=== PATIENT | female | born 1970 | race Caucasian/White ===

== ENCOUNTER 2019-07-11 02:00 | Observation (INO) | payer OTHER, SELFPAY ==
[2019-07-11] VITALS (16 sets, daily range): BP systolic 104–120; BP diastolic 45–72; PULSE 61–79; RESP 14–19; TEMP 36.7–37.4; O2SAT 99–100; BMI 21.7
--- NOTE | ~2019-07-11 | US_ITS ---
EXAMINATION: US pelvic complete w TV EXAM DATE: 07/11/2019 11:32 INDICATION: Amenorrhea/menorrhagia. TECHNIQUE: Pelvic transabdominal and transvaginal sonogram was performed. There are multiple graysca le and Doppler images available for interpretation. There is no prior study for comparison. FINDINGS: Uterus measures 6.7 x 6.1 x 6.2 cm, with heterogeneous region centrally located, partially surrounded by the endometrium, appearance most consistent with a pedunculated submucosal fibroid, me asuring 3.5 x 4.5 x 3.5 cm. There are echogenic foci, and regions causing shadowing within this mass, probably calcifications. This region, the endometrial stripe is 11 mm in thickness. There is no donato e pelvic fluid. Right adnexa: The ovary measures 3.5 x 2.0 x 2.8 cm, with a 1.8 cm complex cystic lesion likely hemor rhagic cyst.. Ovarian vascular flow confirmed. Left adnexa: The ovary measures 3.4 x 1.9 x 1.8 cm and is morphologically normal. Ovarian vascular fl ow confirmed. IMPRESSION: 1. Focal round heterogeneous centrally located mass appearance most consistent with pedunculated subm ucosal fibroid. Can't totally exclude endometrial cancer. 2. Small right ovarian lesion likely hemorrhagic cyst. Reviewed, dictated and finalized at location B. IMPRESSION: 1. Focal round heterogeneous centrally located mass appearance most consistent with pedunculated submucosal fibroid. Can't totally exclude endometrial cancer. 2. Small right ovarian lesion likely hemorrhagic cyst.
--- NOTE | 2019-07-11 02:20 | ED.RECABL ---
HPI - Recheck/Abnormal Lab/Rx General Chief Complaint: Recheck/Abnormal Lab/Rx Stated Complaint: LOW HEMOGLOBIN Time Seen by Provider: 07/11/19 02:18 Source: patient and RN notes reviewed Mode of arrival: ambulatory Limitations: no limitations History of Present Illness HPI narrative: Pt is a 48 y/o female who presents to the ED with c/o anemia. She notes that she has had abnormally heavy periods over the past 4 years, stating that she passes a lot of large clots. Pt notes that she has recently developed fatigue, lightheadedness, and dyspnea on exertion. Pt states that she had routine blood work drawn yesterday morning, and notes that she was called early this morning and advised her hemoglobin was 4.4. She denies any melena, hematochezia, or other symptoms. MD complaint: abnormal lab Initial visit (ago): day(s) (1) Initial visit for: other (routine blood work) Returns today for: called because of abnormal lab/test Description of abnormal result: Hemoglobin of 4.4. Associated symptoms: other (lightheadedness; fatigue; dyspnea on exertion; heavy periods) Related Data Home Medications Medication Instructions Recorded Confirmed No Home Medications 07/09/19 07/09/19 Allergies Allergy/AdvReac Type Severity Reaction Status Date / Time morphine Allergy Unknown Gastrointestinal Verified 07/11/19 02:27 Upset Review of Systems Review of Systems: All systems reviewed & are unremarkable except as noted in HPI and below Constitutional: Constitutional: Reports fatigue Respiratory: Respiratory: Reports dyspnea on exertion Gastrointestinal: Gastrointestinal: Denies melena and Denies hematochezia Genitourinary: Genitourinary: Reports abnormal menses (heavy periods) Neurologic: Reports other (lightheadedness) PMFSH Past Medical History Medical History Pneumothorax traumatic Surgical History Surgical History No significant past surgical history Social History Social History Smoking status: Never smoker Alcohol intake: current Gender identity (if verbalized by the patient): Female Exam Narrative: Exam Narrative: GENERAL: Well-appearing, well-nourished, and in no acute distress. HEAD: Normocephalic, atraumatic. EYES: PERRL and EOMI. Pale conjunctiva. ENT: Mucous membranes moist. CHEST: Clear to auscultation. No respiratory distress. HEART: Regular rate and rhythm. No murmur heard. Normal peripheral pulses. ABDOMEN: Soft, nontender, nondistended, guaiac negative stool. EXTREMITIES: Normal range of motion. No edema. NEURO: Alert and oriented x3. PSYCH: Normal mood and affect. Course Course Emergency Course: Accepted by hospitalist service for admission. 2 units ordered for transfusion. Will add on pelvic ultrasound given patient's history of menorrhagia. Vital Signs Vital signs: Vital Signs Temperature 98.3 F 07/11/19 02:01 Pulse Rate 78 07/11/19 02:01 Respiratory Rate 16 07/11/19 02:01 Blood Pressure 118/45 L 07/11/19 02:01 Pulse Oximetry 100 07/11/19 02:01 Temperature 99.3 F 07/11/19 04:41 Pulse Rate 66 07/11/19 04:41 Respiratory Rate 17 07/11/19 04:41 Blood Pressure 107/69 07/11/19 04:41 Pulse Oximetry 100 07/11/19 04:41 MDM - Recheck/Abnormal Lab/Rx Lab Data Result diagrams: 07/11/19 02:35 07/11/19 02:35 Labs: Lab Results 07/11/19 07/11/19 07/11/19 Range/Units 02:35 02:35 02:35 WBC 6.1 (4.5-10.0) K/mm3 RBC 3.46 L (4.2-5.4) M/mm3 Hgb 5.0 L* (12.0-15.0) g/dL Hct 21.2 L (37.0-47.0) % MCV 61.3 L (80-100) fl MCH 14.5 L (26-34) pg MCHC 23.6 L (32-36) g/dl RDW 22.1 H (11.5-14.5) % Plt Count 512 H (150-375) k/mm3 MPV 10.2 (7.4-10.4) fl Immature Gran % (Auto) 0.3 (0-0.5) % Neut % (Auto) 57.2 (45.5-73.1) % Lymph % (Auto
[2019-07-11 02:44] LABS: Basophils Absolute Auto 0.1 K/mm3 (0.0-0.1); Basophils Percent Auto 0.8 % (0.2-1.2); Eosinophils Absolute Auto 0.1 K/mm3 (0-0.3); Eosinophils Percent Auto 2.1 % (0-4.4); Hematocrit 21.2 % (37.0-47.0); Immature Granulocyte Absolute 0.02 K/mm3 (0.00-0.031); Immature Granulocyte Percent A 0.3 % (0-0.5); Lymphocytes Absolute Auto 1.85 K/mm3 (0.9-3.2); Lymphocytes Percent Auto 30.5 % (18.3-44.2); Mean Corpuscular HGB Conc 23.6 g/dl (32-36); Mean Corpuscular Hemoglobin 14.5 pg (26-34); Mean Corpuscular Volume 61.3 fl (80-100); Mean Platelet Volume 10.2 fl (7.4-10.4); Monocytes Absolute Auto 0.6 K/mm3 (0.1-0.6); Monocytes Percent Auto 9.1 % (2.6-8.5); Neutrophils Absolute Auto 3.5 K/mm3 (1.3-6.7); Neutrophils Percent Auto 57.2 % (45.5-73.1); Platelet Count Result 512 k/mm3 (150-375); Red Blood Count 3.46 M/mm3 (4.2-5.4); Red Cell Distribution Width 22.1 % (11.5-14.5); White Blood Count 6.1 K/mm3 (4.5-10.0)
[2019-07-11 02:56] LABS: Blood Urea Nitrogen 9 mg/dL (7-17); Carbon Dioxide 21 mmol/L (22-30); Chloride 107 mmol/L (98-107); Estimated CRCL calculation 95 ml/min; Estimated Glomerular Filt Rate > 60; Glucose 98 mg/dL (65-105); Potassium 4.3 mmol/L (3.4-5.0); Sodium 137 mmol/L (137-145)
[2019-07-11 03:08] LABS: Hypochromasia 2+ (NORMAL); Large Platelets Present; Ovalocytes 1+ (NORMAL); Platelet Estimate Adequate (Adequate)
[2019-07-11 04:34] LABS: Iron 17 ug/dL (37-170)
[2019-07-11 04:45] LABS: Percent Iron Saturation 4 % (20-50)
[2019-07-11 05:11] LABS: Ferritin 2.21 ng/mL (6.24-137)
[2019-07-11 05:28] LABS: Folic Acid 11.4 ng/mL (2.76->20)
--- NOTE | 2019-07-11 06:03 | ADMGEN ---
This patient, Angely Wallace, was admitted to 3 [facility] Surg Room 320-01. Patient/family oriented to hospital policies and general routines including ID bracelet, bed and alarms, visiting hours, pain management, procedures, bathroom and other care routines, personal items, smoking policy, room service/diet, and visiting hours. Valuables list has been completed. Information on how to activate the Rapid Response Team has been discussed. Patient/Family are encouraged to report perceived risks to care and to ask questions if they do not understand what they are told or what they should do.
--- NOTE | 2019-07-11 09:52 | PM.IMHP ---
H&P: HPI History of Present Illness Chief complaint: anemia Narrative: Date of visit 07/10 844. Angely Wallace is a 48 year old white female who presented to the emergency room with complaint of fatigue, dyspnea on exertion, weakness and craving for ice. She had a routine check with her primary care 3 and was informed early a.m. from the lab that her hemoglobin was 4.4 and she should go to the emergency room. She relates that she has had menstrual cycles for several years consisting of clots intermittently from 5-6 days monthly. She has had no gastrointestinal symptoms of melena, hematochezia, gerd, peptic ulcer disease, but has never had a screening colonoscope exam. There is no family history of gastrointestinal problems or anemia. Her 1st menstrual cycle was at age 16 and her periods have not changed over the last 3 years. 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 Review of Systems Review of Systems: Narrative: Constitutional weight is stable in last 6 months and no change in appetite Eye no double vision or scotoma Mouth no pharyngitis laryngitis Pulmonary no wheezing or cough CV no chest pain but heart lb with climbing stairs and hears her heartbeat in her ears GI as per present illness no dysuria no hematuria Ict Support Technicians as above present illness Muscle skeletal no particular joint discomfort Integument no skin breakdown rashes Psych affect appropriate Neuro no seizures or syncope PMFSH Past Medical History Medical History Pneumothorax traumatic Surgical History Surgical History No significant past surgical history Social History Social History Smoking status: Never smoker Alcohol intake: current Drinks per week: 3 Substance use: current Substance use type: marijuana Last use: 07/10/19 Gender identity (if verbalized by the patient): Female Spiritual care concerns: No Agree to blood products: Yes Meds Home Medications and Allergies Home Medications Medication Instructions Recorded Confirmed Type No Home Medications 07/11/19 07/11/19 History Allergies Allergy/AdvReac Type Severity Reaction Status Date / Time morphine Allergy Unknown Gastrointestinal Verified 07/11/19 02:27 Upset Vital Signs Vital Signs - 24 hr 07/11/19 02:01 07/11/19 03:50 07/11/19 04:24 Temperature 36.8 C 37.4 C Pulse Rate 78 69 76 Respiratory Rate 16 17 19 Blood Pressure 118/45 L 109/67 117/64 Pulse Oximetry 100 100 100 07/11/19 04:30 07/11/19 04:41 07/11/19 05:15 Temperature 37.4 C 36.9 C Pulse Rate 74 66 65 Respiratory Rate 16 17 18 Blood Pressure 107/69 107/69 120/64 Pulse Oximetry 100 100 100 07/11/19 05:41 07/11/19 06:41 07/11/19 08:00 Temperature 37.0 C 36.9 C 37.1 C Pulse Rate 71 74 69 Respiratory Rate 18 18 14 Blood Pressure 109/64 108/61 114/61 Pulse Oximetry 100 100 100 07/11/19 08:10 Temperature 37.1 C Pulse Rate 69 Respiratory Rate 16 Blood Pressure 114/61 Pulse Oximetry 100 Exam Narrative: Exam Narrative: Blood pressure 114/60 pulse is 70 afebrile saturating 100% on room air Pupils equal reactive to light sclera anicteric Neck supple no adenopathy thyromegaly or carotid bruits Mouth mucosa normal Lungs clear CV regular rate rhythm very faint systolic murmur lower left sternal border Abdomen soft nontender no masses Extremities without edema distal pulses are 2+ Neuro alert pleasant cooperative no focal deficits Psych affect appropriate pleasant cooperative Integument no skin breakdown rashes nail beds to appear pale H&P: Results Labs Labs: Short CBC 07/11/19 Range/Units 02:35 WBC 6.1 (4.5-10.0) K/mm3 Hgb 5.0 L* (12.0-15.0) g/dL Hct 21.2 L (37.0-47.0) % Plt Count 512 H (150-375) k/mm3 BMP 07/11/19 02:35 Sodium 137
[2019-07-11 11:18] LABS: Free T4 Free Thyroxine Reflex 0.99 ng/dL (0.78-2.19)
[2019-07-11] MEDS: IRON SUCROSE COMPLEX 400 MG in SODIUM CHLORIDE 0.9% IV 250 ML 108 MG IVPB (13:18)
[2019-07-11 13:31] LABS: Total Triiodothyronine (T3) 1.36 NG/ML (0.97-1.69)
[2019-07-11] MEDS: CYANOCOBALAMIN INJ 1,000 MCG/ML VIAL 1000 MCG IM (14:02)
[2019-07-11 15:28] LABS: Hematocrit 25.3 % (37.0-47.0); Hemoglobin 7.3 g/dL (12.0-15.0); Mean Corpuscular HGB Conc 28.9 g/dl (32-36); Mean Corpuscular Hemoglobin 19.6 pg (26-34); Mean Platelet Volume 9.7 fl (7.4-10.4); Platelet Count Result 447 k/mm3 (150-375); Red Blood Count 3.72 M/mm3 (4.2-5.4); Red Cell Distribution Width 29.3 % (11.5-14.5)
--- NOTE | 2019-07-11 18:38 | PM.DS ---
DS: Diagnosis Admitting Diagnosis Admitting Diagnosis: Iron deficiency anemia secondary to blood loss (chronic) Discharge Diagnosis (1) Iron deficiency anemia due to chronic blood loss: Code(s): D50.0 - Iron deficiency anemia secondary to blood loss (chronic) Status: Acute Assessment and Plan: Thought secondary to her heavy menstrual cycles over the years. CBC indicies and ferritin all compatible with iron deficiency anemia. Only 4% saturation with ferritin of 2.2, transfuse 2 units of packed cells and hemoglobin increased to 7.3, g gave 400 mg IV iron and and 1000 micro g B12 since B12 level was slightly decreased at 314. She will need follow-up with her primary care for serial hemoglobins and refer to INFRASTRUCTURE DIRECTOR. She was stool occult blood negative in the ER but may benefit from gastrointestinal evaluation in the future also since she is close to screening Ag (2) Menorrhagia: Code(s): N92.0 - Excessive and frequent menstruation with regular cycle Status: Acute Assessment and Plan: Pelvic sonogram revealed benign right ovarian hemorrhagic cyst and what appeared to be a pedunculated fibroma of the uterus. We encouraged her to follow-up with ethanol operations manager for more thorough evaluation and possible D and C if indicated DS: Summary Hospital Course Hospital Course: 48-year-old healthy white female who gives at least 3 year history of heavy menstrual cycles with clotting lasting 5-6 days each month had had a routine checkup with her primary care on the and when hemoglobin returned under 5 she was directed to the emergency room. Here she had a microcytic anemia with hemoglobin of 5.0 with% saturation on iron studies only 4% and ferritin of 2.2. She was admitted transfuse 2 units of packed cells with hemoglobin climbing to 7.3. She was also given 400 mg of IV iron. She will follow up with primary care for serial CBCs and with ethanol operations manager Time Spent with Patient Time attestation: Total time spent providing and/or coordinating discharge services: 35 minutes Exam Narrative: Exam Narrative: Condition on discharge Blood pressure 108/60 pulse is 76 and regular afebrile Lungs clear CV regular rate rhythm with a systolic murmur lower left sternal border Abdomen is soft nontender no masses Extremities without edema good distal pulses Neuro alert no focal deficits Chief discharge home activity as tolerated to follow-up primary care in 2 weeks for repeat CBC and follow-up with ethanol operations manager DS: Data Data Completed and Pending Labs on day of discharge: Labs from last 24 hours 07/11/19 07/11/19 07/11/19 15:18 03:59 03:59 WBC 6.0 RBC 3.72 L Hgb 7.3 L Hct 25.3 L MCV 68.0 L D MCH 19.6 L D MCHC 28.9 L RDW 29.3 H Plt Count 447 H MPV 9.7 Immature Gran % (Auto) Neut % (Auto) Lymph % (Auto) [place] % (Auto) Eos % (Auto) Baso % (Auto) Lymph # (Auto) [place] # (Auto) Eos # (Auto) Baso # (Auto) Abs Immat Gran (auto) Absolute Neuts (auto) Absolute Nucleated RBC Nucleated RBC % Platelet Estimate Large Platelets % Immature Plt Fraction Hypochromasia Ovalocytes Sodium Potassium Chloride Carbon Dioxide BUN Creatinine Estim Creat Clear Calc Estimated GFR Glucose Calcium Iron TIBC % Saturation Ferritin Vitamin B12 Folate TSH (Reflex) Free T4 0.99 Total T3 1.36 Blood Type Antibody Screen Crossmatch 07/11/19 07/11/19 07/11/19 03:59 03:58 02:35 WBC RBC Hgb Hct MCV MCH MCHC RDW Plt Count MPV Immature Gran % (Auto) Neut % (Auto) Lymph % (Auto) [place] % (Auto) Eos % (Auto) Baso % (Auto) Lymph # (Auto) [place] # (Auto) Eos # (Auto) Baso # (Auto) Abs Immat Gran (auto) Absolute Neuts (auto) Absolute Nucleated RBC Nucleated RBC % Platelet Estimate Large Platelets % Immature Plt Fraction Hypochr
== END 2019-07-11 18:05 | disposition home or self-care (01) ==
LOC: ANHED 02:18 → ANH3MEDSUR 05:03
PROVIDERS: Admitting Provider Internal Medicine; Emergency Provider Emergency Medicine; PCP Family Medicine; Visit Provider Internal Medicine
DX: D50.0 Iron deficiency anemia secondary to blood loss (chronic) (principal); N92.0 Excessive and frequent menstruation with regular cycle; N83.201 Unspecified ovarian cyst, right side
CPT/HCPCS: 36415; 36430; 76830; 76856; 80048; 82607; 82728; 82746; 83540; 83550; 84439; 84443; 84480; 85025; 85027; 85055; 86850; 86900; 86901; 86920; 96365; 96366; 96372; 99285; G0378; J1756; J3420; J7050; P9016

== ENCOUNTER 2019-10-12 00:16 | Outpatient (CLI) | payer OTHER, SELFPAY ==
[2019-10-12 17:48] LABS: SARS-CoV-2 RNA PCR Negative
== END 2019-10-12 00:17 | disposition home or self-care (01) ==
LOC: ANHCOVIDDT 00:16
PROVIDERS: PCP Family Medicine; Visit Provider Obstetrics & Gynecology
DX: Z01.818 Encounter for other preprocedural examination (principal); Z11.59 Encounter for screening for other viral diseases
CPT/HCPCS: 87635; C9803; U0003

== ENCOUNTER 2019-10-15 01:29 | Day surgery (SDC) | payer OTHER, SELFPAY ==
[2019-10-02 11:15] VITALS: BMI 21.9
--- NOTE | 2019-10-11 11:44 | HP_ITS ---
DATE OF SERVICE: 10/15/2019 Surgery is scheduled for October 14. HISTORY OF PRESENT ILLNESS: Angely is 49 years old, G0, who came to me for consultation due to heavy periods and anemia. Her periods less than monthly, lasting about 7 days, 2 to 4 days are very heavy. She had both blood transfusion and iron infusion, and B12 injection in June this year and she had her heaviest period ever in July. Her hemoglobin went from 11.9 down to 8. She did not get a transfusion at that time. She does have severe cramping with her periods. She denies chest pain, shortness of breath, or dizziness. PAST MEDICAL HISTORY: Anemia. MEDICATIONS: Iron. ALLERGIES: SHE IS ALLERGIC TO MORPHINE. PAST SURGICAL HISTORY: Ankle and chest tube. SOCIAL HISTORY: She does not smoke. She occasionally drinks alcohol and she vapes marijuana daily. PAST OB HISTORY: She has never been . 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 She denies history of STDs. FAMILY HISTORY: Negative for gynecologic malignancy. REVIEW OF SYSTEMS: Negative. PHYSICAL EXAMINATION: VITAL SIGNS: She weighs 141 and blood pressure 145/88. GENERAL: No apparent distress. HEART: Regular rate and rhythm. LUNGS: Clear to auscultation. ABDOMEN: Soft, nontender, and nondistended. EXTREMITIES: Nontender with no edema. PELVIC: Uterus is mildly enlarged, nontender, mobile, and smooth. Adnexa nontender with no palpable mass. IMAGING DATA: Pelvic ultrasound done on July 11, 2019, showed a 4.5 cm submucosal fibroid, otherwise normal. ASSESSMENT AND PLAN: Menorrhagia, anemia, and submucosal fibroid. We discussed options including hysterectomy or more minor surgery involving removal of the fibroid and ablation. She opted and signed consent for D and C, hysteroscopy, hysteroscopic myomectomy, and endometrial ablation after the risks, benefits, complications, and alternatives were discussed. She has no plans ever try to carry any children and is aware she should not try to conceive after having an ablation. D I MT: Linda
[2019-10-15] VITALS (8 sets, daily range): BP systolic 115–140; BP diastolic 60–83; PULSE 46–67; RESP 12–20; TEMP 36.1–36.3; O2SAT 95–100
[2019-10-15] MEDS: LACTATED RINGERS 1,000 ML 30 ML IV CONT ×2 (11:20→15:01)
--- NOTE | 2019-10-15 12:16 | WPDANESEPPF ---
Anes - Initial Pre Proc Eval Procedure: Operation Date: 10/15/19 13:00 Proposed Procedures p Hysteroscopy Dilation And Curettage With Myosure, Myomectomy, Endometrial Ablation With Pearl - Tila Posey MD Date/Time: 10/15/19 12:16 Surgeon: Tila Posey MD Pre Op Diagnosis: menorrhagia Patient Data Age: 49 Gender: F Height: 5 ft 7 in Weight: 63.4 kg Last Vital Signs Temp 36.1 C L 10/15/19 11:20 Pulse 56 L 10/15/19 11:20 Resp 16 10/15/19 11:20 BP 129/70 10/15/19 11:20 Pulse Ox 100 10/15/19 11:20 Allergies Allergy/AdvReac Type Severity Reaction Status Date / Time morphine AdvReac Unknown Gastrointestinal Verified 10/15/19 11:48 Upset Home Medications Medication Instructions Recorded Confirmed Type ferrous sulfate [FeroSul] 325 mg PO DAILY #30 tablet 07/11/19 10/02/19 Rx Patient hx anesthesia problems: none Family hx anesthesia problems: none PMFSH Past Medical History Medical History Pneumothorax traumatic Surgical History Surgical History No significant past surgical history Family History Family History Father Family history of diabetes mellitus in first degree relative Social History Social History Smoking status: Never smoker Alcohol intake: current Drinks per week: 3 Substance use: current Substance use type: marijuana Last use: 07/10/19 Gender identity (if verbalized by the patient): Female Spiritual care concerns: No Agree to blood products: Yes Anes - Eval Final PreProcedure Day of Procedure 10/15/19 12:16 Patient weight: normal Heart: regular rate and rhythm Lungs: clear to auscultation Airway: Mallampati scale class 1 Neurological: alert and oriented Last oral intake: >/= 8 hours ASA classification: II Emergent: no Anesthetic plan: proceed Anesthesia type and monitoring: general GIVS and standard monitoring Informed Consent: The patient's anesthetic plan and its attendant risks and benefits were discussed with the patient/family/POA. Questions were solicited and answers provided to the satisfaction of the patient/family/POA.
--- NOTE | 2019-10-15 12:29 | WPDHPUPDATE1 ---
History and Physical Update Update Date/Time: 10/15/19 12:29 History and Physical has been reviewed, including an updated exam of the patient. There are NO changes in the patient's condition. Risks, benefits, and alternatives have been discussed and questions answered. Patient agrees to proceed with procedure.
--- NOTE | 2019-10-15 12:45 | PM.OP ---
Procedure Note - Brief Procedure Note - Brief Date of procedure: 10/15/19 Pre-op diagnosis: menorrhagia fibroid, anemia Post-op diagnosis: same Procedure performed: D&C, hysteroscopic myomectomy (partial) using MyoSure, endometrial ablation Anesthesia: MAC Surgeon: Tila Posey MD Estimated blood loss (mL): 200 Drains: No Packing: No Pathology: yes Complications: No immediate complications Condition: stable Disposition: PACU Findings: Large submucosal fibroid, only about 50% removed after 90 minutes, otherwise normal endometrial cavity
--- NOTE | 2019-10-15 14:39 | SUR.OPER ---
[id number] normal saline in during myosure, [id number] out during myosure at 1420 made aware of 1300 deficit after bag 25. MD wanted to proceed. At 1435 notified that deficit of 2300. stopped procedure at this time and started alyse.
--- NOTE | 2019-10-15 15:30 | SUR.PHASEI ---
1520 SPOKE WITH SPOUSE NILA PER PHONE- UPDATE GIVEN.
[2019-10-15] MEDS: KETOROLAC 15 MG/ML VIAL (*BKC) IV PUSH (16:25)
--- NOTE | 2019-10-16 14:31 | OP_ITS ---
DATE OF PROCEDURE: 10/15/2019 PREOPERATIVE DIAGNOSES: Menorrhagia, fibroid, anemia. POSTOPERATIVE DIAGNOSES: Menorrhagia, fibroid, anemia. PROCEDURE PERFORMED: D and C, hysteroscopic partial myomectomy, and Pearl endometrial ablation. ANESTHESIA: Conscious sedation. ESTIMATED BLOOD LOSS: 200 mL. COMPLICATIONS: None. FINDINGS: Large submucosal fibroid taking up the entire endometrial cavity, about half of it or maybe a little bit more was removed at the end of the surgery. Otherwise normal endometrial cavity. INDICATIONS: This 49-year-old, G0, came to me for consultation due to heavy periods and anemia. She had a blood transfusion and iron infusion and B12 injection in June this year and then her period came back heavy again in July and her hemoglobin dropped from 11.9 to 8, so she opted for surgical therapy. We discussed the options including hysterectomy or removal of fibroid plus endometrial ablation. She preferred to try the minimally invasive approach and signed consent for D and C, hysteroscopy, myomectomy, and endometrial ablation. DESCRIPTION OF PROCEDURE: For the procedure, she was taken to the operating room where she was sedated and placed in the dorsal lithotomy position. A speculum was placed in the vagina. The anterior lip of the cervix was grasped with a single-tooth tenaculum. The uterus sounded to 9 cm. The cervix was dilated to allow passage of the hysteroscope, which revealed a large submucosal fibroid taking up the majority of the endometrial cavity. The MyoSure device was made ready and was used to remove the fibroid to the extent possible. After about 90 minutes, about half of the fibroid had been removed, 32,000 mL of saline had been used hysteroscopically and about 30,000 mL had been returned. There was a deficit of approximately 2 L, so decision was made, due to the fluid deficit as well as the very slow progress with the MyoSure, to stop the myomectomy portion of the procedure. Since the fibroid had been reduced to a size compatible with endometrial ablation, the Pearl device was then introduced. The cavity assessment passed on the 1st attempt and the cycle ran for 2 minutes. The Pearl device was removed. A 2nd look was taken with the hysteroscope, which revealed a fairly poor-appearing ablation and no reduction in the size of the fibroid, so the hysteroscope was removed. The tenaculum was removed from the cervix. Both tenaculum sites were bleeding. Pressure was held with ring forceps and Allis clamps and there was still bleeding of the tenaculum site, so two [id number] 2-0 Vicryl sutures were placed and then hemostasis was assured. All instruments were removed from the vagina. She tolerated the procedure well. Sponge, lap, needle, and instrument counts were correct x2, and she was taken to the recovery room in stable condition. D I MT: Linda SMITH
== END 2019-10-15 16:50 | disposition home or self-care (01) ==
PROVIDERS: PCP Family Medicine; Visit Provider Obstetrics & Gynecology
PROC: 0U5B8ZZ Destruction of Endometrium, Via Natural or Artificial Opening Endoscopic (ICD-10-PCS; CPT 58563; principal; 2019-10-15 13:00)
DX: N92.0 Excessive and frequent menstruation with regular cycle (principal); D25.0 Submucous leiomyoma of uterus; D64.9 Anemia, unspecified; F12.90 Cannabis use, unspecified, uncomplicated
CPT/HCPCS: 58561; 58563; 88305; J0131; J1100; J1885; J2250; J2405; J2704; J3010; J7120

== ENCOUNTER 2022-09-07 09:36 | Outpatient (CLI) | payer OTHER, SELFPAY ==
--- NOTE | ~2022-09-07 | MM_ITS ---
EXAMINATION: MM screening [facility] BI w amanda HISTORY: Baseline screening mammogram TECHNIQUE: Craniocaudal and mediolateral oblique 3-D tomosynthesis images were obtained and synthetic 2-D images were generated. CAD analysis was submitted and interpreted. COMPARISON: None, baseline BREAST PARENCHYMAL COMPOSITION: There are scattered areas of fibroglandular density. FINDINGS: RIGHT BREAST: There is an obscured mass in the middle third of the upper outer quadrant of the breast 4 cm from the nipple. A smaller obscured mass is present in the posterior third of the outer breast 7 cm from the nipple. LEFT BREAST: No suspicious mass, calcification, or architectural distortion are identified to suggest malignancy. IMPRESSION: 1. Right breast masses. 2. Additional mammographic views and possible breast ultrasound are recommended to evaluate the right breast masses and establish a baseline given that this is the first mammographic examination. BI-RADS Category 0: Incomplete: Needs additional imaging evaluation. Reviewed, dictated and finalized at location A. IMPRESSION: 1. Right breast masses. 2. Additional mammographic views and possible breast ultrasound are recommended to evaluate the right breast masses and establish a baseline given that this i s the first mammographic examination. BI-RADS Category 0: Incomplete: Needs additional imaging evaluation.
== END 2022-09-07 09:37 | disposition home or self-care (01) ==
PROVIDERS: PCP Family Medicine; Visit Provider Nurse Practitioner Family
DX: Z12.31 Encounter for screening mammogram for malignant neoplasm of breast (principal); N63.11 Unspecified lump in the right breast, upper outer quadrant
CPT/HCPCS: 77063; 77067

== ENCOUNTER 2022-11-01 11:11 | Outpatient (CLI) | payer OTHER, SELFPAY ==
--- NOTE | ~2022-11-01 | MMUS_ITS ---
EXAMINATION: MM diagnostic tracee RT w amanda, US breast RT limited HISTORY: Right breast masses on screening mammogram TECHNIQUE: Additional 3-D tomosynthesis images of the right breast were performed and synthetic 2-D i mages were generated. CAD analysis was submitted and interpreted. High resolution limited right breas t ultrasound was performed. COMPARISON: 09/07/2022 BREAST PARENCHYMAL COMPOSITION: There are scattered areas of fibroglandular density. FINDINGS: MAMMOGRAPHIC FINDINGS: There is a 1.6 cm oval, obscured, equal density mass in the middle third of the upper outer quadrant of the breast at the 10:00 location 4 cm from the nipple. A 6 mm mass with similar mammographic featu res is present at the 9:00 location, 6 cm from the nipple. No suspicious calcification is identified. ULTRASOUND: There is a 1.7 x 0.9 cm oval, circumscribed, parallel, hypoechoic mass with posterior acoustic enhanc ement and peripheral vascularity at the 10:00 location 1 cm from the nipple. There is a 5 mm oval, ci rcumscribed, parallel, hypoechoic mass with mild posterior acoustic enhancement and no internal vascu larity at the 9:00 location 3 cm from the nipple. There is a 5 mm cyst at the 10:00 location near the nipple. IMPRESSION: 1. Probably benign right breast masses. 2. Recommend 6 month follow-up right diagnostic mammogram and ultrasound. BI-RADS category 3, probably benign findings. Reviewed, dictated and finalized at location A. IMPRESSION: 1. Probably benign right breast masses. 2. Recommend 6 month follow-up right diagnostic mammogram and ultrasound. BI-RADS category 3, probably benign findings.
== END 2022-11-01 11:12 | disposition home or self-care (01) ==
PROVIDERS: PCP Family Medicine; Visit Provider Nurse Practitioner Family
DX: N63.10 Unspecified lump in the right breast, unspecified quadrant (principal); R92.8 Other abnormal and inconclusive findings on diagnostic imaging of breast
CPT/HCPCS: 76642; 77061; 77065; G0279

== ENCOUNTER 2023-10-10 13:16 | Outpatient (CLI) | payer OTHER, SELFPAY ==
--- NOTE | ~2023-10-10 | MMUS_ITS ---
EXAMINATION: MM diagnostic tracee BI w amanda, US breast RT complete HISTORY: Follow-up right breast masses TECHNIQUE: Additional 3-D tomosynthesis images of the breasts were performed and synthetic 2-D images were generated. CAD analysis was submitted and interpreted. High resolution complete right breast ul trasound was performed. COMPARISON: Comparison to multiple prior studies sequentially, with oldest reviewed study dated 12/2022. BREAST PARENCHYMAL COMPOSITION: Dense: The breasts are extremely dense, which lowers the sensitivity of mammography. FINDINGS: MAMMOGRAPHIC FINDINGS: There are masses in the upper outer quadrant of the right breast which are not significantly changed by mammography. No new masses, calcifications or architectural distortion. The left breast is stable without evidence for malignancy. ULTRASOUND: Complete US of all 4 quadrants of the right breast and retroareolar region was reviewed. There is a 7 mm cyst at 9:30, 6 cm from the nipple. There is an enlarging mass in the 11:00 position, 3 cm from t he nipple measuring 1.9 x 1.9 x 0.8 cm compared with 1.7 x 0.9 x 1.1 cm on prior examination. There i s internal vascularity. No significant posterior features. IMPRESSION: 1. Enlarging solid right breast mass at 11:00, 3 cm from the nipple measuring up to 1.9 cm. 2. Ultrasound-guided right breast biopsy recommended. BI-RADS CATEGORY 4-SUSPICIOUS ABNORMALITY Reviewed, dictated and finalized at location B. IMPRESSION: 1. Enlarging solid right breast mass at 11:00, 3 cm from the nipple measuring u p to 1.9 cm. 2. Ultrasound-guided right breast biopsy recommended. BI-RADS CATEGORY 4-SUSPICIOUS ABNORMALITY
== END 2023-10-10 13:17 | disposition home or self-care (01) ==
LOC: ANHIMG 13:20
PROVIDERS: PCP Family Medicine; Visit Provider Physician Assistant Medical
DX: R92.8 Other abnormal and inconclusive findings on diagnostic imaging of breast (principal)
CPT/HCPCS: 76641; 77062; 77066; G0279

== ENCOUNTER 2023-11-28 08:08 | Outpatient (CLI) | payer OTHER, SELFPAY ==
--- NOTE | ~2023-11-28 | MMUS_ITS ---
US breast biopsy RT w image, MM post biopsy diagnostic RT EXAMINATION: US GUIDED NEEDLE BIOPSY WITH VACUUM ASSISTANCE DATE: 11/28/2023 10:27 CDT INDICATION: Right breast mass seen on prior examination Ultrasound-guided core biopsy is requested t o evaluate for malignancy. BREAST PARENCHYMAL COMPOSITION: Dense: The breasts are heterogeneously dense, which may obscure small masses TECHNIQUE AND FINDINGS: The risks and potential benefits of the procedure were discussed with the patient, and written inform ed consent was obtained. After sterile preparation of the right breast, 1% lidocaine was utilized fo r local anesthesia. 1% lidocaine with epinephrine was used for deep anesthesia. A 10G vacuum-assisted biopsy gun needle was advanced through to the outer edge of the region of inter est from a superior approach utilizing sonographic guidance. A total of 4 tissue core samples were o btained through the lesion. An Inrad tissue marker clip was then placed at the biopsy site. Hemostas is was achieved. The patient tolerated procedure well and there was no evidence of immediate complication. The patien t was given verbal instructions partly is from the department. Right breast mammograms to document t issue marker clip placement. The tissue samples were submitted to surgical pathology for histologic a nalysis. IMPRESSION: 1. Successful ultrasound-guided vacuum-assisted biopsy of right breast mass with post procedure mamm ogram for marker placement. Please refer to pathology report for histologic analysis. Reviewed, dictated and finalized at location B. IMPRESSION: 1. Successful ultrasound-guided vacuum-assisted biopsy of right breast mass wi th post procedure mammogram for marker placement. Please refer to pathology rep ort for histologic analysis.
== END 2023-11-28 08:09 | disposition home or self-care (01) ==
PROVIDERS: PCP Family Medicine; Visit Provider Physician Assistant Medical
DX: N63.10 Unspecified lump in the right breast, unspecified quadrant (principal); R92.8 Other abnormal and inconclusive findings on diagnostic imaging of breast
CPT/HCPCS: 19083; 77065; 88305